=== PATIENT | male | born 1975 | race Caucasian/White ===

== ENCOUNTER 2017-02-12 06:25 | Emergency (ER) | payer OTHER ==
--- NOTE | 2017-02-12 06:45 | ER Document Report ---
ED Extremity Problem, Lower - General Mode of Arrival: Ambulatory Information source: Patient TRAVEL OUTSIDE OF THE [place] IN LAST 30 DAYS: No - HPI Patient complains to provider of: Pain, Swelling Location: Foot - left Quality of pain: Achy Recent injury: No - General Chief Complaint: Foot Injury Stated Complaint: LEFT FOOT PAIN Time Seen by Provider: 02/12/17 06:34 Notes: Patient is a 41-year-old male who presents to the emergency department today with complaints of pain and swelling to his left foot which began overnight last night. When asked to indicate the area of pain, patient states that the pain is located mainly in the left great toe. Patient denies a history of gout. Patient denies any injury or trauma to the area. (SANJANA PARRISH) - Related Data Allergies/Adverse Reactions: tramadol [Tramadol] Adverse Reaction (Verified 06/25/14 14:46) Past Medical History - General Information source: Patient, [facility] Records - Social History Smoking Status: Never Smoker Cigarette use (# per day): No Chew tobacco use (# tins/day): No Frequency of alcohol use: None Drug Abuse: None Lives with: Family Family History: Reviewed & Not Pertinent Patient has suicidal ideation: No Patient has homicidal ideation: No Endocrine Medical History: Reports: Hx Diabetes Mellitus Type 2 Surgical Hx: Negative - Immunizations Hx Diphtheria, Pertussis, Tetanus Vaccination: Yes Review of Systems - Review of Systems Constitutional: No symptoms reported EENT: No symptoms reported Cardiovascular: No symptoms reported Respiratory: No symptoms reported Gastrointestinal: No symptoms reported Genitourinary: No symptoms reported Male Genitourinary: No symptoms reported Musculoskeletal: See HPI, Joint pain - left foot Skin: No symptoms reported Hematologic/Lymphatic: No symptoms reported Neurological/Psychological: No symptoms reported -: Yes All other systems reviewed and negative Physical Exam - Vital signs Vitals: Temp Pulse Resp BP Pulse Ox 97.6 F 73 18 134/83 H 98 02/12/17 06:27 02/12/17 06:27 02/12/17 06:27 02/12/17 06:27 02/12/17 06:27 - Notes Notes: PHYSICAL EXAM GENERAL: Alert, interacts well. No acute distress. HEAD: Normocephalic, atraumatic. EYES: Pupils equal, round, and reactive to light. Extraocular movements intact. ENT: Oral mucosa moist, tongue midline. NECK: Full range of motion. Supple. Trachea midline. LUNGS: No respiratory distress. ABDOMEN: Non-distended. EXTREMITIES: Moves all 4 extremities spontaneously. No edema, radial and dorsalis pedis pulses 2/4 bilaterally. No cyanosis. Pain with palpation of the 1st and 2nd mtp on the left foot, erythema over the plantar aspects of 1st and 2nd mtp, no erythema dorsally, no fluctuance, discharge, or breaks in the skin. Area is not hot to the touch, no lymphangitic streaking. NEUROLOGICAL: Alert and oriented x3. Normal speech. PSYCH: Normal affect, normal mood. SKIN: Warm, dry, normal turgor. (SANJANA PARRISH) Course - Re-evaluation Re-evalutation: 02/12/17 06:54 Consistent with gout, no evidence of infection, treat with colchicine. Discharged home. (LENARD DRAPER) - Vital Signs Vital signs: Temp Pulse Resp BP Pulse Ox 97.6 F 68 18 136/78 H 99 02/12/17 06:27 02/12/17 07:02 02/12/17 07:02 02/12/17 07:02 02/12/17 07:02 Discharge - Discharge Clinical Impression: Prehypertension Gout Qualifiers: Gout site: foot Gout etiology: unspecified cause Chronicity: acute Laterality: left Qualified Code(s): M10.9 - Gout, unspecified Condition: Stable Disposition: HOME, SELF-CARE Additional Instructions: Gout You have been diagnosed as having gout. Gout is a problem caused by an excess of uric acid, a natural chemical found in the body. The cause of this disease is unknown. Gout arthritis occurs when crystals of uric acid form in the joints. The big toe is the most common joint involved, but any joint can become affected. Persons with gout may also form uric acid kidney stones, resulting in flank pain and blood in the urine. Nodules of uric acid may form under the skin. The first step of treatment is to decrease the inflammation in the joint with antiinflammatory medication. Medication to lower the uric acid level in the blood may then be prescribed. This medication should be taken regularly, as any sudden change in dosage may provoke an attack of gout. Some foods, such as red meat, can provoke an attack in some gout sufferers. Call the doctor if new symptoms arise, or if you do not improve. Gout Diet Changing your diet can decrease the uric acid in your blood. High levels of uric acid cause gouty arthritis and uric acid kidney stones. If you have gout , you should avoid meats that are high in purine. Meat products to avoid include liver, kidneys, and brains. In general, poultry is better than red meats. Seafoods to avoid include anchovies, sardines, matta, mackerel, and scallops. In addition to limiting purine-rich foods, people with gout should limit protein intake to 10-15% of total calories. Carbohydrate intake should be around 50% of total daily calories. Limit fat intake to 30% of total daily calories. Cholesterol intake should be less than 300 mg/day. Maintain or achieve a healthy body weight. Weight loss should be gradual. Rapid weight loss can actually increase uric acid levels temporarily. Alcohol, especially beer, should be avoided. Get plenty of fluids. This dilutes urinary uric acid, and helps prevent uric acid kidney stones. Drink eight to twelve cups of water daily. Take the colchicine 1 tablet every 2 hours until the symptoms improve or you develop diarrhea, you may take up to 3 more doses today. You may take the Miller 1 tab every 4-6 hours as needed for pain that is not controlled by the colchicine. I have also started you on steroids to help decrease the swelling. This will increase your blood sugar temporarily. Prescriptions: Colchicine [Colchicine 0.6 mg Tablet] 0.6 mg PO Q2HP PRN #7 tablet PRN Reason: Hydrocodone/Acetaminophen [Miller 5-325 Tablet] 1 each PO Q4HP PRN #6 tablet PRN Reason: Prednisone 60 mg PO DAILY #9 tablet Lidiaibe Attestation: 02/12/17 11:59 I personally performed the services described in the documentation, reviewed and edited the documentation which was dictated to the scribe in my presence, and it accurately records my words and actions. (LENARD DRAPER) Scribe Documentation - Scribe Written by Jayde:: Jayde Martin, 02/12/2017 0746 acting as scribe for :: Adilene
[2017-02-12] MEDS ORDERED: COLCHICINE 0.6 MG TABLET PO ONE (06:46)
[2017-02-12 07:08] VITALS: BP 136/78
== END 2017-02-12 07:11 | disposition home or self-care (01) ==
LOC: ER 06:25
DX: M79.672 Pain in left foot (principal); R03.0 Elevated blood-pressure reading, without diagnosis of hypertension; M10.9 Gout, unspecified; E11.9 Type 2 diabetes mellitus without complications
CPT/HCPCS: 99283

== ENCOUNTER 2019-04-18 00:27 | Emergency (ER) | payer OTHER ==
[2019-04-18 01:36] LABS: APPEARANCE,URINE CLEAR; BILIRUBIN,URINE NEGATIVE (NEGATIVE); COLOR,URINE YELLOW; GLUCOSE, URINE >=500 mg/dL (NEGATIVE); KETONES,URINE NEGATIVE (NEGATIVE); LEUKOCYTE ESTERASE,URINE NEGATIVE (NEGATIVE); NITRITE,URINE NEGATIVE (NEGATIVE); PROTEIN,URINE 100 mg/dL (NEGATIVE); URINE SPECIFIC GRAVITY 1.017
[2019-04-18 04:43] VITALS: BP 134/84
[2019-04-18] MEDS ORDERED: ACETAMINOPHEN 325 MG TABLET PO ONE (04:43)
[2019-04-18] MEDS ORDERED: OXYCODONE-ACETAMINOPHEN 5-325 MG TABLET PO ONE (05:23)
[2019-04-18] MEDS ORDERED: DEXAMETHASONE SOD PHOS INJ 10 MG/1 ML VIAL IM ONE (05:23)
--- NOTE | 2019-04-18 05:29 | ER Document Report ---
ED General - General Chief Complaint: Back Pain Stated Complaint: BACK PAIN Time Seen by Provider: 04/18/19 05:16 Primary Care Provider: KIRTI ALLEN [Primary Care Provider] - Follow up as needed TRAVEL OUTSIDE OF THE [place] IN LAST 30 DAYS: No - HPI Notes: Patient is a 43-year-old male with a history of back pain, diabetes, hyperlipidemia, who presents emergency department for evaluation of back pain. He states that he was working at a [employer], bent over, felt a sudden pop and strain in the left part of his back. His pain radiated down his left leg. He states his toes feel slightly tingly. He denies any bowel or bladder incontinence, no saddle anesthesia, no focal numbness or weakness. No fevers or chills. He had to have a back surgery in the past for a "ruptured disc" 6 years ago. This was performed in [facility]. He does not remember the provider who did it. - Related Data Allergies/Adverse Reactions: tramadol [Tramadol] Adverse Reaction (Verified 06/25/14 14:46) Past Medical History - General Information source: Patient, Relative - Social History Smoking Status: Former Smoker Family History: Reviewed & Not Pertinent Patient has suicidal ideation: No Patient has homicidal ideation: No - Past Medical History Cardiac Medical History: Reports: Hx Hypercholesterolemia Endocrine Medical History: Reports: Hx Diabetes Mellitus Type 2 Renal/ Medical History: Denies: Hx Peritoneal Dialysis Past Surgical History: Reports: Hx Orthopedic Surgery - back surgery - Immunizations Hx Diphtheria, Pertussis, Tetanus Vaccination: Yes Review of Systems - Review of Systems Constitutional: No symptoms reported EENT: No symptoms reported Cardiovascular: No symptoms reported Respiratory: No symptoms reported Gastrointestinal: No symptoms reported Genitourinary: No symptoms reported Musculoskeletal: See HPI Skin: No symptoms reported Neurological/Psychological: No symptoms reported Physical Exam - Vital signs Vitals: Temp Pulse Resp BP Pulse Ox 97.6 F 69 20 146/91 H 99 04/18/19 00:41 04/18/19 00:41 04/18/19 00:41 04/18/19 00:41 04/18/19 00:41 - Notes Notes: Is a 43-year-old male who appears his stated age, no acute distress. Vital signs reviewed, please refer to chart. Head is normocephalic, atraumatic. Pupils equal round, reactive to light. Neck is supple without meningismus. Heart is regular rate and rhythm. Lungs are clear to auscultation bilaterally. Abdomen is soft, nontender, normoactive bowel sounds throughout. Extremities without cyanosis, clubbing. Examination of the spine yields well-healed surgical scar over the lower lumbar upper sacral spine. No signs of erythema or dehiscence. Patient has no midline tenderness or step-off. No paraspinal musculature tenderness appreciated. Negative straight leg raise bilaterally. Patellar and Achilles reflexes are diminished bilaterally, strength is plus 5 out of 5 bilateral lower extremities. Sensation is intact to light touch to bilateral lower extremities. Course - Re-evaluation Re-evalutation: 04/18/19 05:26 Patient presents emergency department for evaluation. He complains of pain that shoots from his lower back down across the sciatic distribution of his left leg. He denies any red flag symptoms. I will go ahead and treat him with Decadron and Percocet here. I will send him home with prescription strength muscle relax er as well as a Medrol Dosepak. He is to follow-up with primary care, seek out possible MRI/referral back to [facility] for further evaluation. If he develops worsening or new concerning symptoms of any sort, he should return immediately to the emergency department for evaluation. - Vital Signs Vital signs: Temp Pulse Resp BP Pulse Ox 97.5 F 72 16 134/84 H 100 04/18/19 04:42 04/18/19 04:42 04/18/19 04:42 04/18/19 04:42 04/18/19 04:42 - Laboratory Laboratory results interpreted by me: 04/18/19 00:50 Urine Protein 100 H Urine Glucose (UA) >=500 H Urine Urobilinogen 2.0 H Discharge - Discharge Clinical Impression: Sciatica Qualifiers: Laterality: left Qualified Code(s): M54.32 - Sciatica, left side Condition: Stable Disposition: HOME, SELF-CARE Instructions: Low Back Pain ([facility]), Sciatica ([facility]) Additional Instructions: Moist heat to the painful area. Take medications as prescribed. Follow-up with primary care next week. If you develop incontinence of bowel or bladder, numbness in and around your testicles, weakness, or any other new or concerning symptoms, please return immediately to the emergency department for reevaluation. Referrals: [facility] [Primary Care Provider] - Follow up as needed
== END 2019-04-18 06:00 | disposition home or self-care (01) ==
LOC: ER 00:27
DX: M54.32 Sciatica, left side (principal); E11.9 Type 2 diabetes mellitus without complications; E78.5 Hyperlipidemia, unspecified; E78.00 Pure hypercholesterolemia, unspecified
CPT/HCPCS: 99283; 96372; 81001; J1100